=== PATIENT | male | born 1960 | race Caucasian/White ===

== ENCOUNTER 2016-12-07 13:00 | Emergency (ER) | payer SELFPAY ==
[~2016-12-07] VITALS: Ht 172.7 cm; Wt 69.2 kg
[~2016-12-07 13:00] MED LIST: ALBU1AER INH; HYDR-2768 PO; NORV10TA PO
[2016-12-07 13:06] VITALS: BP 146/101; PULSE 102; RESP 16; TEMP 97.8; O2SAT 100
--- NOTE | 2016-12-07 13:25 | PD ---
HPI Chief Complaint: short of breath Time Seen by Provider: 13:18 Travel History International Travel<30 days: No Contact w/Intl Traveler<30days: No Traveled to known affect area: No History of Present Illness HPI This patient complains of shortness of breath. Duration one full year. He is a chronic smoker throughout life. He never goes to a doctor. He has chronic dry hacking cough. He denies any fever or chest pain. Symptoms severity is moderate. No alleviating factors. PFSH Past Medical History Arthritis: Yes Blood Disorders: No Anxiety: Yes Depression: No Heart Rhythm Problems: No Cancer: No Cardiac Catheterization: No Cardiovascular Problems: Yes High Cholesterol: Yes Congestive Heart Failure: No COPD: Yes Diabetes: Yes Diminished Hearing: No Endocrine: No Gastrointestinal Disorders: Yes GERD: Yes Genitourinary: No Headaches: Yes Hepatitis: Yes (HEP C) Hypertension: Yes (NONCOMPLIANT ON MEDS) Immune Disorder: No Implanted Vascular Access Dvce: No Musculoskeletal: Yes Neurologic: Yes Psychiatric: Yes (PTSD) Reproductive: No Respiratory: Yes Immunizations Current: No Myocardial Infarction: No Seizures: No PNEUMOCCOCAL Vaccine (Year): 2 Past Surgical History AICD: No Arteriovenous Shunt: No Cardiac Surgery: No Coronary Artery Bypass Graft: No Insulin Pump: No Joint Replacement: No Pacemaker: No Social History Alcohol Use: Yes (Daily, per hx) Tobacco Use: Yes (Cigars daily, per hx) Substance Use: Yes (Denies today) Allergies-Medications (Allergen,Severity, Reaction): Coded Allergies: Codeine (Verified Allergy, Severe, Throat swelling, 04/16/16) Per hx, unable to confirm, patient intoxicated. Reported Meds & Prescriptions Reported Meds & Active Scripts Active Ventolin Hfa 18 GM Inh (Albuterol Sulfate) 90 Mcg/Act Aer 1 Puff INH Q4H PRN Prednisone 20 Mg Tab 40 Mg PO DAILY Take 40 mg (2 tablets) daily for 5 days Review of Systems General / Constitutional: No: Fever Eyes: No: Visual changes HENT: No: Headaches Cardiovascular: No: Chest Pain or Discomfort Respiratory: Positive: Cough, Shortness of Breath, Wheezing Gastrointestinal: No: Abdominal Pain Genitourinary: No: Dysuria Musculoskeletal: No: Pain Skin: No Rash Neurologic: No: Weakness Psychiatric: No: Depression Endocrine: No: Polydipsia Hematologic/Lymphatic: No: Easy Bruising Physical Exam Narrative GENERAL: Well-nourished, well-developed patient in no apparent distress. SKIN: Focused skin assessment reveals no rash and nodules. Skin is Warm and dry. HEAD: Atraumatic. Normocephalic. EYES: Pupils equal and round. No scleral icterus. No injection or drainage. ENT: No nasal bleeding or discharge. Mucous membranes pink and moist. NECK: Trachea midline. No JVD. CARDIOVASCULAR: Regular rate and rhythm. No murmur appreciated. RESPIRATORY: No accessory muscle use. Diffuse expiratory wheezing. Breath sounds equal bilaterally. GASTROINTESTINAL: Abdomen soft, non-tender, nondistended. Hepatic and splenic margins not palpable. MUSCULOSKELETAL: No obvious deformities. No clubbing. No cyanosis. No edema. NEUROLOGICAL: Awake and alert. No obvious cranial nerve deficits. Motor grossly within normal limits. Normal speech. PSYCHIATRIC: Appropriate mood and affect; insight and judgment normal. Data Data Last Documented VS Vital Signs Date Time Temp Pulse Resp B/P Pulse Ox O2 Delivery O2 Flow Rate FiO2 12/07/16 14:15 104 18 150/89 98 Room Air 12/07/16 13:06 97.8 Orders Chest, Single Ap (12/07/16 13:19) Methylprednisolone So Succ Inj (Solumedr (12/07/16 13:30) Albuterol-Ipratropium Neb (Duoneb Neb) (12/07/16 13:30) MDM Medical Decision Making Medical Screen Exam Complete: Yes Emergency Medical Condition: Yes Medical Record Reviewed: Yes Differential Diagnosis COPD, bronchitis, asthma Narrative Course I have reviewed the patient's electronic medical record. Presentation is most consistent with COPD exacerbation I reviewed his chest x-ray which is normal I gave him a series of nebulizer treatments I gave him Solu-Medrol injection Patient will need to work on stopping smoking I prescribed an albuterol inhaler in 5 days of prednisone Room air saturations are 100% Patient feels much better after nebulizers with less wheezing Diagnosis Primary Impression: COPD (chronic obstructive pulmonary disease) with chronic bronchitis Additional Instructions: The patient was advised to follow up with their physician and return if they worsen. Stop smoking Med/Other Pt SpecificInfo: Prescription(s) given Scripts Albuterol 18 GM Inh (Ventolin Hfa 18 GM Inh)90 Mcg/Act Aer1 Puff INH Q4H PRN ( SHORTNESS OF BREATH) #1 INHALER Ref 0 Prov:Jed العلي MD 12/07/16 Prednisone 20 Mg Tab40 Mg PO DAILY #10 TAB Ref 0 Take 40 mg (2 tablets) daily for 5 days Prov:Jed العلي MD 12/07/16 Disposition: 01 DISCHARGE HOME Condition: Stable Jed العلي MD December 07, 2016 13:25
[2016-12-07] MEDS ORDERED: methylPREDNISolone SOD SUCC 125 MG/2 ML VIAL IM ONE (13:30)
[2016-12-07] MEDS: RESP: ALBUTEROL 2.5 MG/IPRATROPIUM 0.5 MG NEB (SCH) INH (13:36)
--- NOTE | 2016-12-07 13:52 | RADHPO ---
EXAM DATE/TIME: 12/07/2016 13:41 [facility] COMPARISON: No previous studies available for comparison. INDICATIONS : Short of breath. MEDICAL HISTORY : Hypertension. SURGICAL HISTORY : None. ENCOUNTER: Initial ACUITY: 4 - 6 months PAIN SCORE: 0/10 LOCATION: Bilateral chest FINDINGS: A single view of the chest demonstrates the lungs to be symmetrically aerated without evidence of mas s, infiltrate or effusion. The cardiomediastinal contours are unremarkable. Osseous structures are intact. CONCLUSION: No acute disease. Denver De La Cruz Jr., MD on December 07, 2016 at 13:50 Board Certified Radiologist. This report was verified electronically.
[2016-12-07 14:15] VITALS: BP 150/89; PULSE 104; RESP 18; O2SAT 98
[2016-12-07] MEDS ORDERED: PRED20 PO (14:17)
[2016-12-07] MEDS ORDERED: VENTAER INH (14:17)
== END 2016-12-07 14:33 | disposition home or self-care (01) ==
LOC: PHED 13:00
DX: J44.9 Chronic obstructive pulmonary disease, unspecified (principal); M19.90 Unspecified osteoarthritis, unspecified site; F17.290 Nicotine dependence, other tobacco product, uncomplicated; F10.10 Alcohol abuse, uncomplicated; E11.9 Type 2 diabetes mellitus without complications; E78.00 Pure hypercholesterolemia, unspecified; I10 Essential (primary) hypertension; F43.10 Post-traumatic stress disorder, unspecified; Z91.14 Patient's other noncompliance with medication regimen
CPT/HCPCS: 71010; 94640; 94664; 96372; 99283; J2930

== ENCOUNTER 2017-06-29 10:13 | Emergency (ER) | payer SELFPAY ==
[~2017-06-29] VITALS: Ht 167.6 cm; Wt 70.4 kg
[~2017-06-29 10:13] MED LIST changes: -ALBU1AER INH; -HYDR-2768 PO; -NORV10TA PO; +PRED20 PO; +VENTAER INH
[2017-06-29 10:23] VITALS: BP 140/81; PULSE 91; RESP 16; TEMP 98.3; O2SAT 98
[2017-06-29] MEDS ORDERED: ROBA500T PO (11:21)
--- NOTE | 2017-06-29 11:21 | PD ---
HPI Chief Complaint: Back/ Neck Pain or Injury Time Seen by Provider: 11:12 Travel History International Travel<30 days: No Contact w/Intl Traveler<30days: No Traveled to known affect area: No History of Present Illness HPI 56-year-old male here with left mid back pain intermittently 2 months. Patient denies injury. He reports the pain is worse after heavy lifting and strenuous activity. He describes the pain as "spasm". Pain is relieved with rest. He denies chest pain, shortness of breath, diaphoresis. PFSH Past Medical History Arthritis: Yes Blood Disorders: No Anxiety: Yes Depression: No Heart Rhythm Problems: No Cancer: No Cardiac Catheterization: No Cardiovascular Problems: Yes High Cholesterol: Yes Congestive Heart Failure: No COPD: Yes Diabetes: Yes Patient Takes Glucophage: No Diminished Hearing: No Endocrine: No Gastrointestinal Disorders: Yes GERD: Yes Genitourinary: No Headaches: Yes Hepatitis: Yes (HEP C) Heparin Induced Thrombocytopen: No Hypertension: Yes (NONCOMPLIANT ON MEDS) Immune Disorder: No Implanted Vascular Access Dvce: No Musculoskeletal: Yes Neurologic: Yes Psychiatric: Yes (PTSD) Reproductive: No Respiratory: Yes Immunizations Current: No Myocardial Infarction: No Seizures: No Influenza Vaccination: No PNEUMOCCOCAL Vaccine (Year): 2 Past Surgical History AICD: No Arteriovenous Shunt: No Cardiac Surgery: No Coronary Artery Bypass Graft: No Insulin Pump: No Joint Replacement: No Pacemaker: No Social History Alcohol Use: Yes (Daily, per hx) Tobacco Use: Yes (Cigars daily, per hx) Substance Use: Yes (Denies today) Allergies-Medications (Allergen,Severity, Reaction): Coded Allergies: codeine (Unverified Allergy, Severe, Throat swelling, 06/29/17) Per hx, unable to confirm, patient intoxicated. Reported Meds & Prescriptions Reported Meds & Active Scripts Active No Active Prescriptions or Reported Medications Review of Systems Except as stated in HPI: all other systems reviewed are Neg Eyes: No: Visual changes HENT: No: Headaches Cardiovascular: No: Chest Pain or Discomfort Respiratory: No: Shortness of Breath Physical Exam Narrative GENERAL: Well-nourished, well-developed patient. SKIN: Focused skin assessment warm/dry. HEAD: Normocephalic. EYES: No scleral icterus. No injection or drainage. NECK: Supple, trachea midline. No JVD or lymphadenopathy. CARDIOVASCULAR: Regular rate and rhythm without murmurs, gallops, or rubs. RESPIRATORY: Breath sounds equal bilaterally. No accessory muscle use. GASTROINTESTINAL: Abdomen soft, non-tender, nondistended. MUSCULOSKELETAL: No cyanosis, or edema. BACK: TTP left thoracic paraspinous musculature. Without obvious deformity. No CVA tenderness. Data Data Last Documented VS Vital Signs Date Time Temp Pulse Resp B/P (MAP) Pulse Ox O2 Delivery O2 Flow Rate FiO2 06/29/17 10:23 98.3 91 16 140/81 (100) 98 MDM Medical Decision Making Medical Screen Exam Complete: Yes Emergency Medical Condition: Yes Differential Diagnosis Muscle strain/sprain, muscle spasm, thoracic spine fracture Narrative Course 56 old male with left-sided thoracic muscle pain and spasm intermittently 2 months. Patient denies any cardiac symptoms. On exam he has reproducible tenderness to the left thoracic paraspinous musculature. Diagnosis Primary Impression: Spasm of thoracic back muscle Referrals: Primary Care Physician Additional Instructions: Take 800 mg of ibuprofen every 6 hours as needed for pain. Take a muscle relaxer as needed for muscle spasm. Avoid heavy lifting or strenuous activity. Follow-up with her primary doctor. Return to emergency department if he developed new or worsening symptoms Scripts Methocarbamol (Robaxin) 500 Mg Tab 500 MG PO TID for Muscle Spasm, #15 TAB 0 Refills Prov: Kathleen Kohler 06/29/17 Disposition: 01 DISCHARGE HOME Condition: Stable Kathleen Kohler Jun 29, 2017 11:21
== END 2017-06-29 11:32 | disposition home or self-care (01) ==
LOC: PHEFT 10:13
DX: M62.830 Muscle spasm of back (principal); J44.9 Chronic obstructive pulmonary disease, unspecified; I10 Essential (primary) hypertension; E78.00 Pure hypercholesterolemia, unspecified; E11.9 Type 2 diabetes mellitus without complications; B19.20 Unspecified viral hepatitis C without hepatic coma; F17.290 Nicotine dependence, other tobacco product, uncomplicated
CPT/HCPCS: 99283

== ENCOUNTER 2017-11-07 19:56 | Emergency (ER) | payer SELFPAY ==
[2017-11-07 19:56] VITALS: BP 163/93; PULSE 99; RESP 18; TEMP 98.4; O2SAT 97
[~2017-11-07 19:56] MED LIST changes: -PRED20 PO; +ROBA500T PO; -VENTAER INH
--- NOTE | 2017-11-07 20:14 | PD ---
HPI Chief Complaint: Altered Mental Status Time Seen by Provider: 20:03 Travel History International Travel<30 days: No Contact w/Intl Traveler<30days: No Traveled to known affect area: No History of Present Illness HPI The patient is a 56-year-old male who presents to the emergency department via EMS. According to EMS they received a call for altered mental status. When EMS arrived the patient was a GCS of 13 with pinpoint pupils. EMS states they administered Narcan and the patient became a GCS of 15. Upon arrival the patient was awake and alert, however, stated he did not want to answer questions or be evaluated in the emergency department. He denied any physical complaints. PFSH Past Medical History Arthritis: Yes Blood Disorders: No Anxiety: Yes Depression: No Heart Rhythm Problems: No Cancer: No Cardiac Catheterization: No Cardiovascular Problems: Yes High Cholesterol: Yes Congestive Heart Failure: No COPD: Yes Diabetes: Yes Diminished Hearing: No Endocrine: No Gastrointestinal Disorders: Yes GERD: Yes Genitourinary: No Headaches: Yes Hepatitis: Yes (HEP C) Heparin Induced Thrombocytopen: No Hypertension: Yes (NONCOMPLIANT ON MEDS) Immune Disorder: No Implanted Vascular Access Dvce: No Musculoskeletal: Yes Neurologic: Yes Psychiatric: Yes (PTSD) Reproductive: No Respiratory: Yes Immunizations Current: No Myocardial Infarction: No Seizures: No PNEUMOCCOCAL Vaccine (Year): 2 Past Surgical History AICD: No Arteriovenous Shunt: No Cardiac Surgery: No Coronary Artery Bypass Graft: No Insulin Pump: No Joint Replacement: No Pacemaker: No Social History Alcohol Use: Yes (Daily, per hx) Tobacco Use: Yes (Cigars daily, per hx) Substance Use: Yes (Denies today) Allergies-Medications (Allergen,Severity, Reaction): Coded Allergies: codeine (Unverified Allergy, Severe, Throat swelling, 06/29/17) Per hx, unable to confirm, patient intoxicated. Reported Meds & Prescriptions Reported Meds & Active Scripts Active Robaxin (Methocarbamol) 500 Mg Tab 500 Mg PO TID Review of Systems ROS Limitations: Other: (Patient did not want to answer questions) Except as stated in HPI: all other systems reviewed are Neg Physical Exam Narrative GENERAL: Awake, alert, pleasant 56-year-old male who appears his stated age and is in no acute respiratory distress. SKIN: Focused skin assessment warm/dry. Superficial abrasions over the fourth and fifth toe of the left foot. HEAD: Atraumatic. Normocephalic. EYES: Pupils equal and round. 2 mm bilateral and reactive. ENT: No epistaxis noted. NECK: Trachea midline. No JVD. CARDIOVASCULAR: Regular rate and rhythm. No murmur appreciated. RESPIRATORY: No accessory muscle use. Clear to auscultation. Breath sounds equal bilaterally. GASTROINTESTINAL: Abdomen soft, non-tender, nondistended. No rebound tenderness. MUSCULOSKELETAL: No obvious deformities. No clubbing. No cyanosis. No edema. NEUROLOGICAL: Awake and alert. No obvious cranial nerve deficits. Motor grossly within normal limits. Normal speech. Alert and oriented 7 out of 7. PSYCHIATRIC: Appropriate mood and affect; insight and judgment normal. MDM Medical Decision Making Medical Screen Exam Complete: Yes Emergency Medical Condition: Yes Medical Record Reviewed: Yes Differential Diagnosis Differential diagnosis includes alcohol intoxication, opiate ingestion, polysubstance abuse, delirium, alcohol dependence, UTI, elevated ammonia level. Narrative Course Upon arrival to the emergency department the patient was alert and oriented, he stated he did not want to have blood drawn and did not want a physical exam. He was agreeable to allow me to perform a screening physical exam. The patient was alert and oriented to person, date of , place, month, year, and bark peeler. The patient was alert and oriented, appear to be able to make a reasonable decision, and signed out AGAINST MEDICAL ADVICE. Procedures Procedure Narrative AMA: The risks of leaving against medical advice without further evaluation treatment were discussed with the patient. These risks include cardiac dysfunction, cardiac dysrhythmia, possible heart attack, possible stroke or . The patient indicated understanding of these risks and appeared to have the capacity to make this decision. Diagnosis Primary Impression: Left against medical advice Patient Instructions: General Instructions Additional Instructions: Follow-up with your primary physician. Return if symptoms worsen or progress. Disposition: AGAINST MEDICAL ADVICE Condition: Stable Bassem Russo MD Nov 07, 2017 20:14
[2017-11-07 20:24] VITALS: BP 157/92
== END 2017-11-07 21:00 | disposition left against medical advice (07) ==
LOC: PHED 19:56
DX: R41.82 Altered mental status, unspecified (principal); E11.9 Type 2 diabetes mellitus without complications; E78.00 Pure hypercholesterolemia, unspecified; J44.9 Chronic obstructive pulmonary disease, unspecified; I10 Essential (primary) hypertension; B19.20 Unspecified viral hepatitis C without hepatic coma; F17.290 Nicotine dependence, other tobacco product, uncomplicated; Z91.14 Patient's other noncompliance with medication regimen; Z53.20 Procedure and treatment not carried out because of patient's decision for unspecified reasons
CPT/HCPCS: 99281